=== PATIENT | female | born 1940 | race Two or more races ===

== ENCOUNTER 2016-11-28 08:36 | Outpatient (RCR) | payer OTHER ==
[~2016-11-28] VITALS: Ht 30.5 cm; Wt 0.5 kg
[2016-12-03] MEDS ORDERED: NS 550ML IV ONE (08:30)
[2016-12-03] MEDS ORDERED: Methohexital Sodium Syr 100mg/10ml IVP ONE (08:30)
[2016-12-03] MEDS ORDERED: Glycopyrrolate 0.2mg/ml 1ml Vial ONE (08:30)
[2016-12-03] MEDS ORDERED: Succinylcholine 20mg/ml 10ml vial ONE (08:30)
== END 2016-12-11 | disposition home or self-care (01) ==
LOC: ECT 08:36
DX: F31.64 Bipolar disorder, current episode mixed, severe, with psychotic features (principal)
CPT/HCPCS: 90870; J0330; J7040

== ENCOUNTER 2016-12-31 06:31 | Outpatient (RCR) | payer OTHER ==
[~2016-12-31] VITALS: Ht 157.5 cm; Wt 49.9 kg
[2016-12-31] MEDS ORDERED: Glycopyrrolate 0.2mg/ml 1ml Vial ONE (06:32)
[2016-12-31] MEDS ORDERED: NS 550ML IV ONE (06:32)
[2016-12-31] MEDS ORDERED: Methohexital Sodium Syr 100mg/10ml IVP ONE (06:32)
[2016-12-31] MEDS ORDERED: Succinylcholine 20mg/ml 10ml vial ONE (06:32)
== END 2017-01-08 | disposition home or self-care (01) ==
LOC: ECT 06:31
DX: F31.64 Bipolar disorder, current episode mixed, severe, with psychotic features (principal)
CPT/HCPCS: 90870; J0330; J7040

== ENCOUNTER 2017-01-28 06:08 | Outpatient (RCR) | payer OTHER | END 2017-02-08 | disposition home or self-care (01) | LOC: ECT 06:08 | DX: F31.64 Bipolar disorder, current episode mixed, severe, with psychotic features (principal); I10 Essential (primary) hypertension; E03.9 Hypothyroidism, unspecified ==

== ENCOUNTER 2017-03-04 05:10 | Outpatient (RCR) | payer OTHER ==
[~2017-03-04] VITALS: Ht 157.5 cm; Wt 49.9 kg
[2017-03-04] MEDS ORDERED: Methohexital Sodium Syr 100mg/10ml IVP ONE (05:11)
[2017-03-04] MEDS ORDERED: Glycopyrrolate 0.2mg/ml 1ml Vial ONE (05:11)
[2017-03-04] MEDS ORDERED: Methohexital Sodium 500mg Vial IVP ONE (05:11)
[2017-03-04] MEDS ORDERED: Succinylcholine 20mg/ml 10ml vial ONE (05:11)
[2017-03-04] MEDS ORDERED: NS 550ML IV ONE (05:11)
[2017-03-04] MEDS ORDERED: Atropine Sulfate 0.4mg/ml inj IVP PRN (11:59)
== END 2017-03-10 | disposition home or self-care (01) ==
LOC: ECT 05:10
DX: F31.64 Bipolar disorder, current episode mixed, severe, with psychotic features (principal)
CPT/HCPCS: 90870; J0330; J7040; J3490

== ENCOUNTER 2017-03-25 06:32 | Outpatient (RCR) | payer OTHER ==
[~2017-03-25] VITALS: Ht 157.5 cm; Wt 49.9 kg
[2017-03-25] MEDS ORDERED: Methohexital Sodium Syr 100mg/10ml IVP ONE (06:33)
[2017-03-25] MEDS ORDERED: Succinylcholine 20mg/ml 10ml vial ONE (06:33)
[2017-03-25] MEDS ORDERED: Glycopyrrolate 0.2mg/ml 1ml Vial ONE (06:33)
[2017-03-25] MEDS ORDERED: NS 550ML IV ONE (06:33)
== END 2017-04-10 | disposition home or self-care (01) ==
LOC: ECT 06:32
DX: F31.64 Bipolar disorder, current episode mixed, severe, with psychotic features (principal)
CPT/HCPCS: 90870; J0330; J7040

== ENCOUNTER 2017-04-15 05:16 | Outpatient (RCR) | payer OTHER ==
[~2017-04-15] VITALS: Ht 157.5 cm; Wt 49.9 kg
[2017-04-22] MEDS ORDERED: Glycopyrrolate 0.2mg/ml 1ml Vial ONE (19:38)
[2017-04-22] MEDS ORDERED: Succinylcholine 20mg/ml 10ml vial ONE (19:38)
[2017-04-22] MEDS ORDERED: Methohexital Sodium Syr 100mg/10ml IVP ONE (19:38)
[2017-04-22] MEDS ORDERED: NS 550ML IV ONE (19:38)
== END 2017-05-10 | disposition home or self-care (01) ==
LOC: ECT 05:16
DX: F31.64 Bipolar disorder, current episode mixed, severe, with psychotic features (principal)
CPT/HCPCS: 90870; J0330; J7040

== ENCOUNTER 2017-05-20 05:20 | Outpatient (RCR) | payer OTHER ==
[~2017-05-20] VITALS: Ht 157.5 cm; Wt 49.9 kg
[2017-05-20] MEDS ORDERED: Methohexital Sodium Syr 100mg/10ml IVP ONE (05:21)
[2017-05-20] MEDS ORDERED: NS 550ML IV ONE (05:21)
[2017-05-20] MEDS ORDERED: Succinylcholine 20mg/ml 10ml vial ONE (05:21)
[2017-05-20] MEDS ORDERED: Glycopyrrolate 0.2mg/ml 1ml Vial ONE (05:21)
== END 2017-06-10 | disposition home or self-care (01) ==
LOC: ECT 05:20
DX: F31.64 Bipolar disorder, current episode mixed, severe, with psychotic features (principal)
CPT/HCPCS: 90870; J0330; J7040

== ENCOUNTER 2017-06-19 07:12 | Outpatient (RCR) | payer OTHER ==
[~2017-06-19] VITALS: Ht 157.5 cm; Wt 49.9 kg
[2017-06-19] MEDS ORDERED: Methohexital Sodium Syr 100mg/10ml IVP ONE (07:13)
[2017-06-19] MEDS ORDERED: Succinylcholine 20mg/ml 10ml vial ONE (07:13)
[2017-06-19] MEDS ORDERED: NS 550ML IV ONE (07:13)
[2017-06-19] MEDS ORDERED: Glycopyrrolate 0.2mg/ml 1ml Vial ONE (07:13)
== END 2017-07-11 | disposition home or self-care (01) ==
LOC: ECT 07:12
DX: F31.64 Bipolar disorder, current episode mixed, severe, with psychotic features (principal)
CPT/HCPCS: 90870; J0330; J7040